=== PATIENT | female | born 1970 | race Asian ===

== ENCOUNTER 2018-01-22 12:29 | Emergency (ER) | payer OTHER ==
[~2018-01-22] VITALS: Ht 175.3 cm; Wt 65.0 kg
[2018-01-22 13:00] VITALS: BP 132/78
[2018-01-22] MEDS ORDERED: ESOM20CA PO (13:04)
[2018-01-22] MEDS ORDERED: BACITRACIN ZINC OINT 500U/GM, 0.9 GM ONE (13:05)
== END 2018-01-22 13:21 | disposition home or self-care (01) ==
LOC: ED 12:50
DX: S90.32XA Contusion of left foot, initial encounter (principal); S90.02XA Contusion of left ankle, initial encounter; W22.8XXA Striking against or struck by other objects, initial encounter; Y93.89 Activity, other specified; Y99.0 Civilian activity done for income or pay; Y92.69 Other specified industrial and construction area as the place of occurrence of the external cause
CPT/HCPCS: 99284